=== PATIENT | male | born 1960 | race Caucasian/White ===

== ENCOUNTER 2022-06-11 12:22 | Emergency (ER) | payer OTHER ==
[~2022-06-11] VITALS: Ht 175.3 cm; Wt 108.9 kg
== END 2022-06-11 13:38 | disposition home or self-care (01) ==
LOC: ER 12:22
DX: N40.1 Benign prostatic hyperplasia with lower urinary tract symptoms (principal); R33.8 Other retention of urine; I10 Essential (primary) hypertension; E78.5 Hyperlipidemia, unspecified